=== PATIENT | female | born 1985 | race Caucasian/White ===

== ENCOUNTER 2017-04-11 14:47 | Inpatient (IN) | payer MEDICARE, MEDICAID ==
[~2017-04-11] VITALS: Ht 154.9 cm; Wt 48.2 kg
[~2017-04-11 14:47] MED LIST: ACETAMINOPHEN 325 MG TABLET PO ONE; CARV6.2579 PO; CLON.2 PO; HYDR-3971 PO; LORA1TAB3 PO; METR500 PO; OMEP20 PO; OS500 PO; PROM25 PO; RANO500T3 PO; ZOLP10 PO
[2017-04-11 15:25] LABS: BASOPHILS % (AUTO) 0.5 % (0.0-2.0); EOSINOPHILS % (AUTO) 1.4 % (1.0-6.0); HEMATOCRIT 31.8 % (36-46); LYMPHOCYTES # (AUTO) 1.4 K/uL (1.0-4.8); LYMPHOCYTES % (AUTO) 19.6 % (22.0-44.0); MEAN CORPUSCULAR HEMOGLOBIN 33.7 pg (26.0-34.0); MEAN CORPUSCULAR HGB CONC 34.4 G/dL (31.0-37.0); MEAN CORPUSCULAR VOLUME 98 fL (80-100); MONOCYTES # (AUTO) 0.3 K/uL (0.1-1.0); MONOCYTES % (AUTO) 4.8 % (2.0-9.0); NEUTROPHILS # (AUTO) 5.1 K/uL (1.8-7.7); NEUTROPHILS % (AUTO) 73.7 % (40.0-70.0); PLATELET COUNT (AUTO) 148 K/uL (150-450); RED BLOOD CELL COUNT(AUTO) 3.25 MIL/uL (4.00-5.20); RED CELL DISTRIBUTION WIDTH 15.3 % (11.5-14.5); WHITE BLOOD COUNT (AUTO) 6.9 K/uL (4.5-11.0)
[2017-04-11 15:35] LABS: INR 1.1 (0.9-1.1); PROTHROMBIN TIME 11.2 SEC (9.4-11.6)
[2017-04-11 15:53] LABS: B-TYPE NATRIURETIC PEPTIDE > 5000 pg/mL (0-100)
[2017-04-11 16:03] LABS: ALANINE AMINOTRANSFERASE 33 U/L (12-78); ALBUMIN 4.5 g/dL (3.4-5.0); ANION GAP 19 mmol/L (8-16); ASPARTATE AMINOTRANSFERASE 24 U/L (15-37); BILIRUBIN,TOTAL 0.6 mg/dL (0.1-1.0); CALCIUM, TOTAL 8.3 mg/dL (8.8-10.5); CARBON DIOXIDE 20 mmol/L (22-29); CHLORIDE 94 mmol/L (98-107); CREATINE KINASE MB 3.1 ng/mL (0-5); CREATINE KINASE, TOTAL 155 U/L (26-192); CREATININE 14.18 mg/dL (0.60-1.30); GLOMERULAR FILTR. RATE CALC 3 mL/min (>60); SODIUM SERUM 133 mmol/L (136-145); TOTAL PROTEIN, SERUM 8.8 g/dL (6.4-8.2)
[2017-04-11 16:05] LABS: POTASSIUM 6.8 mmol/L (3.5-5.1)
[2017-04-11 16:06] LABS: UREA NITROGEN, BLOOD 110 mg/dL (7-18)
[2017-04-11] MEDS ORDERED: 0.9% SODIUM CHLORIDE 10 ML SYRINGE IVP PRN (16:45)
[2017-04-11] MEDS ORDERED: LEVOFLOXACIN 500 MG/D5% WATER 100 ML IV ONE (16:45)
[2017-04-11] MEDS ORDERED: ACETAMINOPHEN 325 MG TABLET PO PRN (16:45)
[2017-04-11 17:49] VITALS: BP 151/103
[2017-04-11] MEDS ORDERED: MANNITOL 25%-12.5 GM/50 ML VIAL IVP PRN (18:15)
[2017-04-11] MEDS ORDERED: ALBUMIN HUMAN 25%-12.5GM/50ML IV BOTTLE IV PRN (18:15)
[2017-04-11] MEDS ORDERED: ALBUTEROL SULFATE 2.5 MG/0.5 ML NEB SOLUTION NEB PRN (21:30)
[2017-04-11] MEDS ORDERED: BISACODYL 10 MG RECTAL RECTAL SUPPOSITORY PR PRN (21:30)
[2017-04-11] MEDS ORDERED: CloNIDine HCL 0.1 MG TABLET PO PRN (21:30)
[2017-04-11] MEDS: HYDROmorphone 2 MG/ML SYRINGE IVP PRN (22:32)
[2017-04-11 23:25] VITALS: BP 165/99
[2017-04-12] MEDS: METOCLOPRAMIDE HCL 5 MG/ML 2 ML VIAL IVP PRN ×2 (01:09→08:28)
[2017-04-12] MEDS: HYDROmorphone 2 MG/ML SYRINGE IVP PRN ×3 (04:33→21:28)
[2017-04-12 05:20] VITALS: BP 156/101
[2017-04-12 06:12] LABS: BASOPHILS # (AUTO) 0.02 K/uL (0.00-0.20); BASOPHILS % (AUTO) 0.2 % (0.0-2.0); EOSINOPHILS # (AUTO) 0.06 K/uL (0.00-0.70); EOSINOPHILS % (AUTO) 0.75 % (1.0-6.0); HEMATOCRIT 33.5 % (36-46); LYMPHOCYTES # (AUTO) 1.8 K/uL (1.0-4.8); LYMPHOCYTES % (AUTO) 20.7 % (22.0-44.0); MEAN CORPUSCULAR HGB CONC 32.9 G/dL (31.0-37.0); MEAN CORPUSCULAR VOLUME 100 fL (80-100); MONOCYTES # (AUTO) 0.6 K/uL (0.1-1.0); MONOCYTES % (AUTO) 6.5 % (2.0-9.0); NEUTROPHILS # (AUTO) 6.1 K/uL (1.8-7.7); NEUTROPHILS % (AUTO) 71.9 % (40.0-70.0); PLATELET COUNT (AUTO) 185 K/uL (150-450); RED BLOOD CELL COUNT(AUTO) 3.35 MIL/uL (4.00-5.20); RED CELL DISTRIBUTION WIDTH 15.2 % (11.5-14.5); WHITE BLOOD COUNT (AUTO) 8.5 K/uL (4.5-11.0)
[2017-04-12 06:29] LABS: CALCIUM, TOTAL 8.6 mg/dL (8.8-10.5); CREATININE 7.39 mg/dL (0.60-1.30); POTASSIUM 4.7 mmol/L (3.5-5.1)
[2017-04-12 07:49] VITALS: BP 157/92
[2017-04-12] MEDS: HEPARIN SODIUM,PORCINE 5,000 UNITS/ML VIAL SQ SCH ×2 (08:16→21:27)
[2017-04-12] MEDS: PANTOPRAZOLE SODIUM 40 MG DR TABLET PO SCH (08:17)
[2017-04-12] MEDS: VITAMIN B COMP/VIT C/FOLIC ACID CAPSULE PO SCH (08:17)
[2017-04-12] MEDS: DOCUSATE SODIUM 100 MG CAPSULE PO SCH ×2 (08:17→21:27)
[2017-04-12] MEDS: ACETAMINOPHEN 325 MG TABLET PO PRN (08:30)
[2017-04-12] MEDS ORDERED: SODIUM CHLORIDE 0.9% 2,000 ML IV ONE (10:42)
[2017-04-12 11:08] LABS: RBC MORPHOLOGY COMMENT ABNORMAL RBC MORPH
[2017-04-12 11:46] VITALS: BP 165/105
[2017-04-12] MEDS: AmLODIPine BESYLATE 5 MG TABLET PO SCH ×2 (12:06→21:27)
[2017-04-12] MEDS: CARVEDILOL 12.5 MG TABLET PO SCH ×2 (12:06→21:27)
[2017-04-12 15:28] VITALS: BP 148/88
[2017-04-12 19:32] VITALS: BP 141/96
[2017-04-12] MEDS: OXYGEN THERAPY IH SCH (21:27)
[2017-04-12 23:35] VITALS: BP 152/99
[2017-04-12] MEDS: CloNIDine HCL 0.2 MG TABLET PO SCH (23:57)
[2017-04-13] MEDS: HYDROmorphone 2 MG/ML SYRINGE IVP PRN ×2 (03:28→09:39)
[2017-04-13 04:08] VITALS: BP 142/90
[2017-04-13 06:52] LABS: CREATININE 6.54 mg/dL (0.60-1.30); POTASSIUM 4.5 mmol/L (3.5-5.1)
[2017-04-13] MEDS: OXYGEN THERAPY IH SCH (08:00)
[2017-04-13 08:01] VITALS: BP 131/86
[2017-04-13] MEDS ORDERED: EPOETIN ALFA 10,000 UNITS/ML 2 ML VIAL SQ SCH (09:00)
[2017-04-13] MEDS: DOCUSATE SODIUM 100 MG CAPSULE PO SCH (09:00)
[2017-04-13 10:55] VITALS: BP 119/81
[2017-04-13] MEDS: AmLODIPine BESYLATE 5 MG TABLET PO SCH (11:10)
[2017-04-13] MEDS: PANTOPRAZOLE SODIUM 40 MG DR TABLET PO SCH (11:10)
[2017-04-13] MEDS: CloNIDine HCL 0.2 MG TABLET PO SCH (11:11)
[2017-04-13] MEDS: CARVEDILOL 12.5 MG TABLET PO SCH (11:11)
[2017-04-13] MEDS: HEPARIN SODIUM,PORCINE 5,000 UNITS/ML VIAL SQ SCH (11:16)
[2017-04-13] MEDS: VITAMIN B COMP/VIT C/FOLIC ACID CAPSULE PO SCH (13:49)
[2017-04-13 15:08] VITALS: BP 98/52
[2017-04-13] MEDS: ACETAMINOPHEN 325 MG TABLET PO PRN (18:20)
[2017-04-13 19:53] VITALS: BP 94/49
== END 2017-04-13 20:35 | disposition home or self-care (01) | DRG 640 ==
LOC: EMS 14:51 → 5N 17:07 → 5S 22:59
PROVIDERS: ADMIT Internal Medicine; ATTEND Internal Medicine
PROC: 5A1D60Z (ICD-10-PCS; principal; 2017-04-11)
DX: E87.5 Hyperkalemia (principal); N18.6 End stage renal disease; I13.2 Hypertensive heart and chronic kidney disease with heart failure and with stage 5 chronic kidney disease, or end stage renal disease; I42.9 Cardiomyopathy, unspecified; I49.5 Sick sinus syndrome; Z99.2 Dependence on renal dialysis; I25.2 Old myocardial infarction; I50.9 Heart failure, unspecified; G89.4 Chronic pain syndrome; E89.2 Postprocedural hypoparathyroidism; Z95.1 Presence of aortocoronary bypass graft; Z90.49 Acquired absence of other specified parts of digestive tract; Z88.6 Allergy status to analgesic agent; Z91.013 Allergy to seafood; Z88.8 Allergy status to other drugs, medicaments and biological substances; Z91.018 Allergy to other foods; Z91.041 Radiographic dye allergy status; Z79.899 Other long term (current) drug therapy; Z79.891 Long term (current) use of opiate analgesic; Z91.15 Patient's noncompliance with renal dialysis; Z95.2 Presence of prosthetic heart valve; Z95.810 Presence of automatic (implantable) cardiac defibrillator; Z91.048 Other nonmedicinal substance allergy status; Z87.01 Personal history of pneumonia (recurrent)
CPT/HCPCS: 71250; 87040; 87081; 87340; 93005; 99291; J0885; J1170; J1644; J2765; J7030

== ENCOUNTER 2017-07-29 21:25 | Inpatient (IN) | payer MEDICARE, MEDICAID ==
[~2017-07-29] VITALS: Ht 167.6 cm; Wt 43.6 kg
[~2017-07-29 21:25] MED LIST changes: -ACETAMINOPHEN 325 MG TABLET PO ONE; -HYDR-3971 PO; -LORA1TAB3 PO; -METR500 PO; -PROM25 PO; -RANO500T3 PO; -ZOLP10 PO
[2017-07-29] MEDS ORDERED: RANO500T3 PO (22:11)
[2017-07-29] MEDS ORDERED: HYDR-4061 PO (22:11)
[2017-07-29] MEDS ORDERED: FOLI0.8T2 PO (22:11)
[2017-07-29 22:56] LABS: BASOPHILS % (AUTO) 0.2 % (0.0-2.0); EOSINOPHILS % (AUTO) 1.8 % (1.0-6.0); HEMATOCRIT 24.4 % (36-46); HEMOGLOBIN 8.2 g/dL (12.0-16.0); LYMPHOCYTES # (AUTO) 1.1 K/uL (1.0-4.8); LYMPHOCYTES % (AUTO) 17.8 % (22.0-44.0); MEAN CORPUSCULAR HEMOGLOBIN 33.3 pg (26.0-34.0); MEAN CORPUSCULAR HGB CONC 33.6 G/dL (31.0-37.0); MEAN CORPUSCULAR VOLUME 99 fL (80-100); MONOCYTES # (AUTO) 0.4 K/uL (0.1-1.0); MONOCYTES % (AUTO) 5.9 % (2.0-9.0); NEUTROPHILS # (AUTO) 4.4 K/uL (1.8-7.7); NEUTROPHILS % (AUTO) 74.3 % (40.0-70.0); PLATELET COUNT (AUTO) 200 K/uL (150-450); RED BLOOD CELL COUNT(AUTO) 2.45 MIL/uL (4.00-5.20); RED CELL DISTRIBUTION WIDTH 16.9 % (11.5-14.5)
[2017-07-29 23:13] LABS: ALBUMIN 3.9 g/dL (3.4-5.0); BILIRUBIN,TOTAL 0.6 mg/dL (0.1-1.0); CALCIUM, TOTAL 9.1 mg/dL (8.8-10.5); CREATININE 16.79 mg/dL (0.60-1.30); TOTAL PROTEIN, SERUM 8.4 g/dL (6.4-8.2)
[2017-07-29 23:20] LABS: POTASSIUM 7.6 mmol/L (3.5-5.1)
[2017-07-29] MEDS ORDERED: INSULIN REGULAR, HUMAN 100 UNITS/ML IVP ONE (23:30)
[2017-07-29] MEDS ORDERED: DEXTROSE 25%-WATER 2.5 GM/10 ML SYRINGE IVP ONE (23:30)
[2017-07-29] MEDS ORDERED: SODIUM BICARBONATE [ADULT] 8.4% 50 MEQ/50 ML SYRINGE IVP ONE (23:30)
[2017-07-29] MEDS ORDERED: SODIUM POLYSTYRENE SULFONATE 15 GM/60 ML SUSPENSION BOTTLE PO ONE (23:30)
[2017-07-29] MEDS ORDERED: DEXTROSE 50%-WATER 25 GM/50 ML SYRINGE IVP ONE (23:45)
[2017-07-30] MEDS ORDERED: PROCHLORPERAZINE EDISYLATE 5 MG/ML 2 ML VIAL IVP ONE (01:00)
[2017-07-30] MEDS ORDERED: HYDROmorphone 2 MG/ML SYRINGE IVP ONE (01:15)
[2017-07-30] MEDS ORDERED: ALBUTEROL SULFATE 5 MG/ML 20 ML NEB SOLN [BULK] NEB ONE (01:15)
[2017-07-30] MEDS ORDERED: 0.9% SODIUM CHLORIDE 5 ML NEB SOLUTION NEB ONE (01:21)
[2017-07-30 03:36] LABS: CALCIUM, TOTAL 8.9 mg/dL (8.8-10.5); CREATININE 16.81 mg/dL (0.60-1.30); POTASSIUM 5.9 mmol/L (3.5-5.1)
[2017-07-30 05:24] LABS: GLUCOSE,POINT OF CARE 85 MG/DL (70-110)
[2017-07-30 05:24] LABS: GLUCOSE,POINT OF CARE 193 MG/DL (70-110)
[2017-07-30 05:24] LABS: GLUCOSE,POINT OF CARE 122 MG/DL (70-110)
[2017-07-30 06:15] VITALS: BP 159/92
[2017-07-30 07:43] VITALS: BP 154/89
[2017-07-30] MEDS ORDERED: ONDANSETRON HCL 4 MG/2 ML VIAL IVP PRN (09:45)
[2017-07-30] MEDS ORDERED: ALBUTEROL SULFATE 2.5 MG/0.5 ML NEB SOLUTION NEB PRN (09:45)
[2017-07-30] MEDS ORDERED: ACETAMINOPHEN 325 MG TABLET PO PRN (09:45)
[2017-07-30] MEDS ORDERED: BISACODYL 10 MG RECTAL RECTAL SUPPOSITORY PR PRN (09:45)
[2017-07-30] MEDS: OxyCODONE HCL/ACETAMINOPHEN 5-325 MG TABLET PO PRN ×3 (10:04→20:16)
[2017-07-30] MEDS ORDERED: MANNITOL 25%-12.5 GM/50 ML VIAL IVP PRN (12:00)
[2017-07-30] MEDS: PANTOPRAZOLE SODIUM 40 MG DR TABLET PO SCH (12:53)
[2017-07-30] MEDS: CARVEDILOL 6.25 MG TABLET PO SCH ×2 (12:53→20:16)
[2017-07-30] MEDS ORDERED: DiphenhydrAMINE HCL 50 MG/ML VIAL IVP ONE ×2 (14:00)
[2017-07-30] MEDS: EPOETIN ALFA 10,000 UNITS/ML VIAL SQ SCH (14:08)
[2017-07-30 16:39] VITALS: BP 153/95
[2017-07-30 19:18] VITALS: BP 138/87
[2017-07-30] MEDS: LACTULOSE 20 GM/30 ML SOLUTION UDCUP PO SCH (20:15)
[2017-07-30] MEDS: DOCUSATE SODIUM 100 MG CAPSULE PO SCH (20:16)
[2017-07-30] MEDS: HEPARIN SODIUM,PORCINE 5,000 UNITS/ML VIAL SQ SCH (20:16)
[2017-07-30] MEDS: HYDROmorphone 2 MG/ML SYRINGE IVP PRN (20:46)
[2017-07-30] MEDS: PROMETHAZINE HCL 25 MG TABLET PO PRN (21:11)
[2017-07-30 23:53] VITALS: BP 144/90
[2017-07-31 05:22] VITALS: BP 115/81
[2017-07-31 06:27] LABS: BASOPHILS % (AUTO) 0.3 % (0.0-2.0); EOSINOPHILS % (AUTO) 1.1 % (1.0-6.0); HEMATOCRIT 23.7 % (36-46); HEMOGLOBIN 8.1 g/dL (12.0-16.0); LYMPHOCYTES # (AUTO) 1.2 K/uL (1.0-4.8); LYMPHOCYTES % (AUTO) 23.2 % (22.0-44.0); MEAN CORPUSCULAR HEMOGLOBIN 34.4 pg (26.0-34.0); MEAN CORPUSCULAR HGB CONC 34.3 G/dL (31.0-37.0); MEAN CORPUSCULAR VOLUME 100 fL (80-100); MONOCYTES # (AUTO) 0.7 K/uL (0.1-1.0); MONOCYTES % (AUTO) 13.7 % (2.0-9.0); NEUTROPHILS # (AUTO) 3.2 K/uL (1.8-7.7); NEUTROPHILS % (AUTO) 61.7 % (40.0-70.0); PLATELET COUNT (AUTO) 231 K/uL (150-450); RED BLOOD CELL COUNT(AUTO) 2.37 MIL/uL (4.00-5.20); WHITE BLOOD COUNT (AUTO) 5.1 K/uL (4.5-11.0)
[2017-07-31] MEDS: PROMETHAZINE HCL 25 MG TABLET PO PRN (08:43)
[2017-07-31] MEDS: HEPARIN SODIUM,PORCINE 5,000 UNITS/ML VIAL SQ SCH ×2 (08:43→20:51)
[2017-07-31] MEDS: CARVEDILOL 6.25 MG TABLET PO SCH ×2 (08:43→20:51)
[2017-07-31] MEDS: DOCUSATE SODIUM 100 MG CAPSULE PO SCH ×2 (08:43→20:51)
[2017-07-31] MEDS: PANTOPRAZOLE SODIUM 40 MG DR TABLET PO SCH (08:43)
[2017-07-31] MEDS: LACTULOSE 20 GM/30 ML SOLUTION UDCUP PO SCH ×2 (08:44→20:51)
[2017-07-31] MEDS: POLYETHYLENE GLYCOL 3350 17 GM PACKET PO SCH (08:54)
[2017-07-31 08:56] VITALS: BP 147/89
[2017-07-31] MEDS: HYDROmorphone 2 MG/ML SYRINGE IVP PRN ×2 (09:04→21:05)
[2017-07-31 09:54] LABS: CALCIUM, TOTAL 9.4 mg/dL (8.8-10.5); CREATININE 2.29 mg/dL (0.60-1.30); POTASSIUM 3.1 mmol/L (3.5-5.1)
[2017-07-31 10:00] LABS: ALBUMIN 3.9 g/dL (3.4-5.0); BILIRUBIN,TOTAL 0.7 mg/dL (0.1-1.0); TOTAL PROTEIN, SERUM 9.5 g/dL (6.4-8.2)
[2017-07-31] MEDS ORDERED: METOCLOPRAMIDE HCL 5 MG/ML 2 ML VIAL IVP PRN (11:15)
[2017-07-31 11:46] VITALS: BP 138/87
[2017-07-31 15:29] VITALS: BP 140/89
[2017-07-31 19:19] VITALS: BP 146/84
[2017-07-31] MEDS: METOCLOPRAMIDE HCL 5 MG/ML 2 ML VIAL IVP PRN (21:04)
[2017-07-31 23:38] VITALS: BP 155/92
[2017-08-01 04:21] VITALS: BP 150/91
[2017-08-01 07:30] VITALS: BP 147/97
[2017-08-01] MEDS: LACTULOSE 20 GM/30 ML SOLUTION UDCUP PO SCH (09:00)
[2017-08-01] MEDS: PANTOPRAZOLE SODIUM 40 MG DR TABLET PO SCH (09:01)
[2017-08-01] MEDS: METOCLOPRAMIDE HCL 5 MG/ML 2 ML VIAL IVP PRN (09:01)
[2017-08-01] MEDS: CARVEDILOL 6.25 MG TABLET PO SCH (09:01)
[2017-08-01] MEDS: HEPARIN SODIUM,PORCINE 5,000 UNITS/ML VIAL SQ SCH (09:01)
[2017-08-01] MEDS: EPOETIN ALFA 10,000 UNITS/ML VIAL SQ SCH (09:02)
[2017-08-01] MEDS: POLYETHYLENE GLYCOL 3350 17 GM PACKET PO SCH (09:09)
[2017-08-01] MEDS: DOCUSATE SODIUM 100 MG CAPSULE PO SCH (09:17)
[2017-08-01] MEDS: HYDROmorphone 2 MG/ML SYRINGE IVP PRN (11:06)
[2017-08-01] MEDS ORDERED: SODIUM CHLORIDE 0.9% 2,000 ML IV ONE (11:17)
[2017-08-01 12:02] VITALS: BP 140/89
[2017-08-01] MEDS ORDERED: DSS100 PO (15:15)
[2017-08-01 15:55] VITALS: BP 130/86
== END 2017-08-01 16:55 | disposition home or self-care (01) | DRG 640 ==
LOC: EMS 21:26 → 5S 07-30 03:48
PROVIDERS: ADMIT Internal Medicine; ATTEND Internal Medicine
DX: E87.5 Hyperkalemia (principal); N18.6 End stage renal disease; I12.0 Hypertensive chronic kidney disease with stage 5 chronic kidney disease or end stage renal disease; I42.9 Cardiomyopathy, unspecified; E87.70 Fluid overload, unspecified; D64.9 Anemia, unspecified; D63.8 Anemia in other chronic diseases classified elsewhere; I25.10 Atherosclerotic heart disease of native coronary artery without angina pectoris; I25.5 Ischemic cardiomyopathy; K52.9 Noninfective gastroenteritis and colitis, unspecified; K59.00 Constipation, unspecified; Z91.19 Patient's noncompliance with other medical treatment and regimen; I25.2 Old myocardial infarction; Z86.73 Personal history of transient ischemic attack (TIA), and cerebral infarction without residual deficits; Z95.1 Presence of aortocoronary bypass graft; Z95.810 Presence of automatic (implantable) cardiac defibrillator; Z82.49 Family history of ischemic heart disease and other diseases of the circulatory system; Z86.711 Personal history of pulmonary embolism; Z90.49 Acquired absence of other specified parts of digestive tract; Z99.2 Dependence on renal dialysis; Z88.8 Allergy status to other drugs, medicaments and biological substances; Z88.5 Allergy status to narcotic agent
CPT/HCPCS: 74010; 74176; 82962; 87081; 87340; 90935; 93005; 94640; 96374; 96375; 99291; J0780; J0885; J1170; J1200; J1644; J1815; J2405; J2765; J3490; J7030